=== PATIENT | male | born 1995 | race Caucasian/White ===

== ENCOUNTER 2019-03-25 22:39 | Emergency (ER) | payer OTHER ==
[2019-03-25] MEDS ORDERED: Acetaminophen 500 MG TAB ONE (23:10)
== END 2019-03-25 23:22 | disposition home or self-care (01) ==
LOC: MADERS 22:39
DX: S20.212A Contusion of left front wall of thorax, initial encounter (principal); F10.129 Alcohol abuse with intoxication, unspecified; M54.2 Cervicalgia; R11.10 Vomiting, unspecified; F90.9 Attention-deficit hyperactivity disorder, unspecified type; J45.909 Unspecified asthma, uncomplicated; F17.210 Nicotine dependence, cigarettes, uncomplicated; V59.9XXA Occupant (driver) (passenger) of pick-up truck or van injured in unspecified traffic accident, initial encounter
CPT/HCPCS: 99283